=== PATIENT | male | born 1975 | race Caucasian/White ===

== ENCOUNTER 2019-02-22 07:37 | Day surgery (SDC) | payer OTHER ==
[2019-02-19 09:28] VITALS: BMI 23.9
[~2019-02-22 07:37] MED LIST: LACTATED RINGERS 1,000 ML IV SCH
[2019-02-22 08:17] VITALS: TEMP 97.5
[2019-02-22] MEDS ORDERED: PROPOFOL 10 MG/ML 20 ML VIAL IV ONE (09:02)
--- NOTE | 2019-02-22 09:06 | P.GSHP ---
History of Present Illness H&P Date: 02/22/19 Chief Complaint: GI bleed This a 43-year-old male referred from Dr. Escamilla. Patient rents today for colonoscopy. He's had issues with GI bleed. Past Medical History Past Medical History: Hyperlipidemia, Skin Disorder Additional Past Medical History / Comment(s): not sure if hx of seizures, blood on rectal exam, eczema, History of Any Multi-Drug Resistant Organisms: None Reported Past Surgical History: No Surgical Hx Reported Past Anesthesia/Blood Transfusion Reactions: No Reported Reaction, Unable to Obtain Additional Past Anesthesia/Blood Transfusion Reaction / Comment(s): limited past hx from guardian Past Psychological History: Depression Additional Psychological History / Comment(s): mentally challanged from , occ limited verbally, has been with legal guardian for 6 years(Estelle Dolan) who states he is cooperative, does not get upset or aggitated with hospitals, no problem having blood drawn Smoking Status: Never smoker Past Alcohol Use History: None Reported Past Drug Use History: None Reported - Past Family History Mother Family Medical History: Unable to Obtain Medications and Allergies Home Medications Medication Instructions Recorded Confirmed Type Benztropine Mesylate [Cogentin] 2 mg PO BID 02/19/19 02/19/19 History Divalproex ER [Depakote ER] 500 mg PO BID 02/19/19 02/19/19 History Haloperidol Decanoate [Haldol 50 mg IM QMONTH 02/19/19 02/22/19 History Decanoate] Sertraline [Zoloft] 200 mg PO DAILY 02/19/19 02/19/19 History Simvastatin [Zocor] 80 mg PO HS 02/19/19 02/19/19 History Allergies Allergy/AdvReac Type Severity Reaction Status Date / Time No Known Allergies Allergy Verified 02/19/19 09:15 Surgical - Exam Vital Signs Temp Pulse Resp BP Pulse Ox 97.5 F L 72 18 112/66 94 L 02/22/19 08:16 02/22/19 08:16 02/22/19 08:16 02/22/19 08:16 02/22/19 08:16 - General well developed, well nourished, no distress - Eyes PERRL - ENT normal pinna - Neck no masses - Respiratory normal expansion - Cardiovascular Rhythm: regular - Abdomen Abdomen: soft, non tender Assessment and Plan Assessment: GI bleed. We'll perform colonoscopy.
--- NOTE | 2019-02-22 09:23 | P.OP ---
Date of Procedure: 02/22/19 Preoperative Diagnosis: GI bleed Postoperative Diagnosis: Colonoscopy Procedure(s) Performed: Colonoscopy Anesthesia: HAM Surgeon: Benny Willis Pathology: none sent Condition: stable Disposition: PACU Description of Procedure: PROCEDURE: The patient was placed on the endoscopy table in the lateral p osition. Digital rectal examination was performed which revealed no abnormalities. The prostate was symmetrical without nodules. Flexible colonoscope was then placed in the patient's anus and passed throughout the entire colon. The ileocecal valve was visualized. The cecum, ascending, transverse, descending and sigmoid colon were normal. The rectum was normal as well. There were no masses, polyps or diverticula noted in the entire colon. SUMMARY OF FINDINGS: Normal colonoscopy.
[2019-02-22 09:52] VITALS: BP 102/59; PULSE 71; RESP 18
== END 2019-02-22 10:00 | disposition home or self-care (01) ==
LOC: ORWHC2ENDO 07:37
PROVIDERS: ATTEND Surgery
DX: K92.2 Gastrointestinal hemorrhage, unspecified (principal); E78.5 Hyperlipidemia, unspecified; F32.9 Major depressive disorder, single episode, unspecified; Z79.899 Other long term (current) drug therapy; F79 Unspecified intellectual disabilities
CPT/HCPCS: 45378; J2704